=== PATIENT | female | born 1955 | race Caucasian/White ===

== ENCOUNTER 2018-09-16 06:11 | Day surgery (SDC) | payer MEDICARE, OTHER ==
[2018-09-15 10:48] VITALS: BMI 28.3
[~2018-09-16 06:11] MED LIST: EPINEPHrine 0.3 MG in Ophthalmic Irrigation Solution 500 ML FS SCH
[2018-09-16] MEDS ORDERED: Fentanyl 100 MCG/2 ML VIAL ONE (06:24)
[2018-09-16] MEDS ORDERED: Midazolam HCl 2 mg/2 ml Vial ONE (06:24)
[2018-09-16] MEDS ORDERED: Cyclopentolate 1% Opth Drop 2 ML BOT ONE (06:36)
[2018-09-16] MEDS ORDERED: Phenylephrine 2.5% Ophth Soln 5 ML BOT ONE (06:37)
[2018-09-16] MEDS ORDERED: Indocyanine Green 25 MG/10 ML VIAL ONE (10:48)
[2018-09-16] MEDS ORDERED: PROPOFOL 200 MG/20 ML VIAL ONE (10:48)
[2018-09-16] MEDS ORDERED: Bupivacaine 0.75% 10 ML AMP ONE (10:48)
[2018-09-16] MEDS ORDERED: CEFAZOLIN 1 GM VIAL ONE (10:48)
[2018-09-16] MEDS ORDERED: Maxitrol 0.1% Opth Oint 3.5 GM TUBE ONE (10:48)
[2018-09-16] MEDS ORDERED: Lidocaine 4% PF 5 ML AMP ONE (10:48)
[2018-09-16] MEDS ORDERED: Lidocaine 1% PF 5 ML VIAL ONE (10:48)
[2018-09-16] MEDS ORDERED: Triamcinolone 40 MG/ML VIAL ONE (10:48)
--- NOTE | 2018-09-16 10:49 | OP ---
DATE OF PROCEDURE: 09/16/2018 PREOPERATIVE DIAGNOSIS: Macular hole, right eye. POSTOPERATIVE DIAGNOSIS: Macular hole, right eye. PROCEDURE PERFORMED: Pars plana vitrectomy, internal limiting membrane peel, right eye. ANESTHESIA: Local with monitored anesthesia care. PROCEDURE IN DETAIL: The patient was identified in preoperative holding area. Appropriate informed consent for planned surgical procedure on the right eye had been obtained. The patient was transported to the operative suite, where appropriate cardiopulmonary monitoring established. Local anesthesia obtained using retrobulbar modified Van Lint lid block using 50:50 mixture of 4% lidocaine and 0.75% bupivacaine. The patient was prepped and draped in the usual sterile manner for ophthalmic surgery on the right eye. Lid speculum was placed in the right eye. A 25-gauge trocar was placed through the conjunctivae and sclera superotemporally, inferotemporally, and superonasally. Infusion line was placed inferotemporally. Light pipe and vitreous cutter inserted into the eye. Core vitrectomy was performed. Indocyanine green dye was infused on the posterior pole x1 identifying the internal limiting membrane and the epiretinal membrane around the fovea. This was elevated using membrane scraper and peeled across the macula using end-gripping forceps. Complete air-fluid exchange was performed with 10 minutes being left for fluid to drain posteriorly. No holes or breaks or tears in the retina were found by indirect ophthalmoscopy. Prophylactic laser was placed behind the sclerotomy sites. 28% sulfur hexafluoride gas was infused into the eye. Trocars were removed. The eye was noted to retain pressure well. Retrobulbar Kenalog and subconjunctival Ancef were placed. Atropine antibiotic ointment was placed and the eye was patched and shielded. The patient was taken to the postoperative recovery unit in good condition, having suffered no immediate perioperative complications. The patient was instructed to keep patch and shield on, avoid lifting or bending, avoid flat on the back positioning, and followup appointment with Dr. Canchola. Job ID: [id number]
== END 2018-09-16 10:21 | disposition home or self-care (01) ==
LOC: SDC 06:11
PROVIDERS: ATTEND Ophthalmology Retina Specialist
PROC: 08T43ZZ Resection of Right Vitreous, Percutaneous Approach (ICD-10-PCS; principal; 2018-09-16)
PROC: 08NE3ZZ Release Right Retina, Percutaneous Approach (ICD-10-PCS; 2018-09-16)
DX: H35.341 Macular cyst, hole, or pseudohole, right eye (principal); I10 Essential (primary) hypertension; E78.5 Hyperlipidemia, unspecified; E66.9 Obesity, unspecified; Z68.28 Body mass index [BMI] 28.0-28.9, adult; Z79.899 Other long term (current) drug therapy
CPT/HCPCS: 67025; J0171; J2250; J3010

== ENCOUNTER 2024-06-16 09:30 | Outpatient (CLI) | payer MEDICARE, OTHER | END 2024-06-16 09:31 | disposition home or self-care (01) | LOC: PET 09:30 | PROVIDERS: ATTEND Internal Medicine | DX: C82.91 Follicular lymphoma, unspecified, lymph nodes of head, face, and neck (principal) | CPT/HCPCS: 78815; A9552 ==

== ENCOUNTER 2025-03-01 09:30 | Outpatient (CLI) | payer MEDICARE, OTHER | END 2025-03-01 09:31 | disposition home or self-care (01) | LOC: PET 09:30 | PROVIDERS: ATTEND Internal Medicine | DX: C82.91 Follicular lymphoma, unspecified, lymph nodes of head, face, and neck (principal); M79.89 Other specified soft tissue disorders | CPT/HCPCS: 78815; A9552 ==